=== PATIENT | male | born 1960 | race Caucasian/White ===

== ENCOUNTER 2017-02-03 00:15 | Emergency (ER) | payer OTHER ==
[~2017-02-03] VITALS: Ht 177.8 cm; Wt 102.1 kg
[2017-02-03 00:26] VITALS: BP 152/77
--- NOTE | 2017-02-03 02:58 | NUR ---
PT TKAEN TO OF2
--- NOTE | 2017-02-03 03:01 | NUR ---
Dr. Marinelli evaluating patient
[2017-02-03] MEDS ORDERED: NACL 0.9% 1,000 ML IV ONE (03:10)
[2017-02-03] MEDS ORDERED: AMPICILLIN/SULBACTAM 1.5 GM in NACL 0.9% 50 ML IV ONE (03:10)
[2017-02-03] MEDS ORDERED: VANCOMYCIN 1,000 MG in DEXTROSE 5% 250 ML IV ONE (03:10)
[2017-02-03] MEDS ORDERED: VANCOMYCIN 1,000 MG VIAL ONE (03:47)
[2017-02-03] MEDS ORDERED: AMPICILLIN/SULBACTAM 1.5 GM VIAL ONE (03:47)
--- NOTE | 2017-02-03 03:56 | NUR ---
PT MOVED TO BED 7
--- NOTE | 2017-02-03 05:00 | NUR ---
Pt sleeping. No changes. Denies complaints.
[2017-02-03 07:16] VITALS: BP 135/82
--- NOTE | 2017-02-03 07:16 | NUR ---
Patient discharged with v/s stable. Written and verbal after care instructions given and explained. Patient alert, oriented and verbalized understanding of instructions. Ambulatory with steady gait. All questions addressed prior to discharge. ID band removed. Patient advised to follow up with PMD. Rx of Augmentin and Naproxen given. Patient educated on indication of medication including possible reaction and side effects. Opportunity to ask questions provided and answered.
== END 2017-02-03 07:16 | disposition home or self-care (01) ==
LOC: MED 00:15
DX: S41.152A Open bite of left upper arm, initial encounter (principal); S41.151A Open bite of right upper arm, initial encounter; Z86.19 Personal history of other infectious and parasitic diseases; W54.0XXA Bitten by dog, initial encounter; Y93.89 Activity, other specified; Y92.89 Other specified places as the place of occurrence of the external cause; Y99.8 Other external cause status
CPT/HCPCS: 36415; 85025; 87040; 96365; 96366; 96375; 99285; J0295; J3370; J7030